=== PATIENT | female | born 1965 ===

== ENCOUNTER 2021-08-13 11:57 | Outpatient (REF) | payer OTHER, SELFPAY ==
--- NOTE | ~2021-08-13 | CT_ITS ---
EXAMINATION: CT MAXILLOFACIAL WITHOUT CONTRAST CLINICAL INFORMATION: Radiopacity of the mandible. COMPARISON: None available. TECHNIQUE: Multidetector helical imaging was performed in the axial plane with generation of coronal and sagittal reformatted images. This CT examination was performed using dose optimization techniques as appropriate, variously including the following: *Automated exposure control *Adjustment of mA and/or kV according to patient size (this includes techniques or standardized protocols for targeted exams where dose is matched to indication/reason for exam; i.e. 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 MAXILLARY SINUSES AND DRAINAGE PATHWAYS: Minimal mucosal thickening of the maxillary sinuses. The maxillary ostia and infundibula are patent. ETHMOID SINUSES: Minimal mucosal thickening of ethmoid air cells. The ethmoid roofs appear symmetric and intact. SPHENOID SINUS AND DRAINAGE PATHWAYS: The sphenoid sinus is clear. The sphenoethmoidal recesses are patent. The carotid canals are normally covered by bone. NASAL PASSAGE: The nasal passages are clear. Minimal leftward nasal septal deviation. ORBITS: Normal appearance of the osseous orbits. The lamina papyracea are intact. No significant preseptal or retrobulbar edema. Normal appearance of the globes. Normal symmetric appearance of the extraocular musculature. No abnormalities of the intraconal or extraconal adipose tissue. Normal appearance of the optic nerve sheaths. Normal appearance of the lacrimal glands. No orbital fluid collections. No abnormalities of the orbital apices. TEMPOROMANDIBULAR JOINTS: The temporomandibular joints remain well aligned. Normal appearance of the temporomandibular joints. ADDITIONAL RELEVANT FINDINGS: There is mildly expansile, groundglass change centered within the medullary cavity of the posterior aspect of the left mandibular body measuring approximately 3.2 x 1.4 x 2.7 cm. Associated partial thinning of the adjacent mandibular cortex. No associated fracture. No additional focal lytic or sclerotic osseous lesions demonstrated. No evidence of maxillofacial bone fractures. The zygomatic arches remain intact. No nasal bone fracture. No evidence of mandibular or maxillary fracture. No significant maxillary/mandibular periapical disease. Mild torus palatini. The visualized mastoid air cells and middle ear cavities remain well aerated. Limited evaluation of the intracranial structures without significant abnormalities. The premaxillary, retromaxillary, pterygopalatine fossa, temporal fossa, and parapharyngeal adipose tissue is maintained. No demonstrated soft tissue abnormalities within the intrinsic tissues of the tongue. CT/CT facial bones wo con IMPRESSION: Mildly expansile, groundglass sclerotic region of the left mandibular body. 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 However, given the patient's age, nuclear medicine bone scan may be considered to exclude additional osseous lesions. Initial follow-up may also be warranted to demonstrate stability over time.
== END 2021-08-13 11:58 | disposition home or self-care (01) ==
LOC: HO.CT 11:57
PROVIDERS: Visit Provider Oral & Maxillofacial Surgery
DX: M27.9 Disease of jaws, unspecified (principal)
CPT/HCPCS: 70486